=== PATIENT | female | born 1975 | race Caucasian/White ===

== ENCOUNTER 2016-11-11 22:23 | Emergency (ER) | payer OTHER ==
[~2016-11-11] VITALS: Ht 162.6 cm; Wt 104.3 kg
[~2016-11-11 22:23] MED LIST: CARB100C79 PO
[2016-11-11 22:37] VITALS: BP 159/93
--- NOTE | 2016-11-11 23:21 | NUR ---
TO ER OF2
[2016-11-11 23:25] LABS: APPEARANCE,URINE SL CLOUDY (CLEAR); BILIRUBIN,URINE NEGATIVE (NEGATIVE); BLOOD, URINE NEGATIVE (NEGATIVE); COLOR,URINE YELLOW (YELLOW); LEUKOCYTE ESTERASE ,URINE 1+ (NEGATIVE); NITRITE, URINE NEGATIVE (NEGATIVE); PROTEIN,URINE NEGATIVE (NEGATIVE); UGLUCOSE NEGATIVE (NEGATIVE); UROBILINOGEN,URINE 0.2 EU/dL (0.2 - 1)
[2016-11-11 23:37] LABS: BACTERIA,URINE 3+ /HPF (None Seen); MUCUS,URINE 3+ /LPF (None Seen); RBC,URINE 0-5 (RARE) /HPF (0-5)
--- NOTE | 2016-11-11 23:37 | NUR ---
41Y/F PT. PRESENTS TO ED WITH C/O LOWER BACK PAIN WITH FREQUENCY URINATE X 2 DAYS. DENIES N/V/D. HX. SEIZURE. AAO X4, AMBULATORY WITH STEADY GAIT. RESPIRATIONS ROOM AIR, EVEN AND UNLABORED. C/O BACK PAIN 11/15. VSS, ER MD MADE AWARE OF PT. STATUS.
--- NOTE | 2016-11-11 23:53 | NUR ---
Patient being evaluated by physician.
--- NOTE | 2016-11-12 00:16 | NUR ---
Patient discharged with v/s stable. Written and verbal after care instructions given and explained. Patient alert, oriented and verbalized understanding of instructions. Ambulatory with steady gait. All questions addressed prior to discharge. ID band removed. Patient advised to follow up with PMD. Rx of NORCO 5/325 MG, CARBAMAZEPINE 200 MG, MOTRIN 800 MG, FLEXARIL 5 MG given. Patient educated on indication of medication including possible reaction and side effects. Opportunity to ask questions provided and answered.
[2016-11-12 00:17] VITALS: BP 152/90
== END 2016-11-12 00:16 | disposition home or self-care (01) ==
LOC: MED 22:23
DX: M54.40 Lumbago with sciatica, unspecified side (principal); G40.909 Epilepsy, unspecified, not intractable, without status epilepticus; J45.909 Unspecified asthma, uncomplicated; Z88.1 Allergy status to other antibiotic agents; Z88.5 Allergy status to narcotic agent; Z79.899 Other long term (current) drug therapy
CPT/HCPCS: 81001; 81025; 87086; 99284

== ENCOUNTER 2017-01-08 18:01 | Emergency (ER) | payer OTHER ==
[~2017-01-08] VITALS: Ht 160 cm; Wt 106.6 kg
[~2017-01-08 18:01] MED LIST changes: -CARB100C79 PO; +TEGRETOL100 M1 PO
[2017-01-08 18:23] VITALS: BP 157/94
[2017-01-08] MEDS: IBUPROFEN 800 MG TAB PO ONE (19:31)
[2017-01-08 21:07] VITALS: BP 145/92
== END 2017-01-08 21:07 | disposition home or self-care (01) ==
LOC: MED 18:01
DX: S83.8X2A Sprain of other specified parts of left knee, initial encounter (principal); S93.491A Sprain of other ligament of right ankle, initial encounter; J45.909 Unspecified asthma, uncomplicated; Z88.1 Allergy status to other antibiotic agents; Z88.5 Allergy status to narcotic agent; Z79.899 Other long term (current) drug therapy; X58.XXXA Exposure to other specified factors, initial encounter; Y93.89 Activity, other specified; Y92.89 Other specified places as the place of occurrence of the external cause; Y99.8 Other external cause status
CPT/HCPCS: 73562; 73610; 99284; Q0092

== ENCOUNTER 2017-08-12 16:46 | Emergency (ER) | payer OTHER ==
[~2017-08-12] VITALS: Ht 160 cm; Wt 106.6 kg
[~2017-08-12 16:46] MED LIST changes: +CARB100C79 PO; -TEGRETOL100 M1 PO
[2017-08-12 17:01] VITALS: BP 166/102
--- NOTE | 2017-08-12 17:01 | NUR ---
PT AMBULATED TO BED 12
--- NOTE | 2017-08-12 17:10 | NUR ---
42Y/F BIB SELF C/O BACK PAIN X 2 DAYS. MOTRIN LAST TAKEN LAST NIGHT. DENIES ANY TRAUMA OR FALL. AAOX4 WITH EVEN AND STEADY GAIT; PATIENT STATES PAIN OF 8/10 AT THIS TIME; PATIENT POSITIONED FOR COMFORT; HOB ELEVATED; BEDRAILS UP X 1; BED DOWN. ER MD MADE AWARE OF PT STATUS.
--- NOTE | 2017-08-12 17:18 | NUR ---
Patient being evaluated by physician at bedside.
[2017-08-12] MEDS ORDERED: DIAZEPAM 5 MG TAB PO ONE (17:20)
[2017-08-12] MEDS ORDERED: KETOROLAC 30 MG/ML VIAL IM ONE (17:20)
--- NOTE | 2017-08-12 19:26 | NUR ---
Patient discharged with v/s stable. Written and verbal after care instructions given and explained. Patient alert, oriented and verbalized understanding of instructions. Ambulatory with steady gait. All questions addressed prior to discharge. ID band removed. Patient advised to follow up with PMD. Rx of TEGRETOL, NAPROSYN, VALIUM given. Patient educated on indication of medication including possible reaction and side effects. Opportunity to ask questions provided and answered.
[2017-08-12 19:28] VITALS: BP 165/100
== END 2017-08-12 19:26 | disposition home or self-care (01) ==
LOC: MED 16:46
DX: M54.9 Dorsalgia, unspecified (principal); J45.909 Unspecified asthma, uncomplicated; F41.9 Anxiety disorder, unspecified; M54.30 Sciatica, unspecified side; Z88.1 Allergy status to other antibiotic agents; Z88.5 Allergy status to narcotic agent; Z79.899 Other long term (current) drug therapy
CPT/HCPCS: 71045; 96372; 99283; J1885; Q0092

== ENCOUNTER 2018-03-03 17:27 | Emergency (ER) | payer OTHER ==
[~2018-03-03] VITALS: Ht 170.2 cm; Wt 81.6 kg
--- NOTE | 2018-03-03 17:32 | NUR ---
PT AMBULATED TO ER CHAIR E
[2018-03-03 17:33] VITALS: BP 165/101
--- NOTE | 2018-03-03 17:46 | NUR ---
PT C/O COUGH X 2 DAYS. FEELING WEAK TODAY, CHILLS AND NEEDING MED REFILL OF TEGRETOL 200 MG ONCE A DAY. 0/10 PAIN. STATES SHE FEELS LIKE SHE'S GOING TO HAVE A EIZURE, NO NVD OR SOB/CP. HX---SEIZURES. SKIN IS PINK/WARM/DRY; AAOX4 WITH EVEN AND STEADY GAIT; LUNGS CLEAR BL. PATIENT STATES PAIN OF 0/10 AT THIS TIME. PATIENT POSITIONED FOR COMFORT; HOB ELEVATED; BEDRAILS UP X2; BED DOWN. ER MD MADE AWARE OF PT STATUS.
--- NOTE | 2018-03-03 18:07 | NUR ---
Patient being evaluated by at bedside.
[2018-03-03] MEDS ORDERED: carBAMazepine 200 MG TAB PO ONE (18:10)
[2018-03-03] MEDS ORDERED: KETOROLAC 60 MG/2 ML VIAL IM ONE (18:10)
[2018-03-03 18:34] VITALS: BP 156/94
--- NOTE | 2018-03-03 18:35 | NUR ---
Patient discharged with v/s stable. Written and verbal after care instructions given and explained. Patient alert, oriented and verbalized understanding of instructions. Ambulatory with steady gait. All questions addressed prior to discharge. ID band removed. Patient advised to follow up with PMD. Rx of TEGRETOL/MOTRIN given. Patient educated on indication of medication including possible reaction and side effects. Opportunity to ask questions provided and answered.
== END 2018-03-03 18:35 | disposition home or self-care (01) ==
LOC: MED 17:27
DX: M54.5 Low back pain (principal); R56.9 Unspecified convulsions; J45.909 Unspecified asthma, uncomplicated; Z76.0 Encounter for issue of repeat prescription; Z88.1 Allergy status to other antibiotic agents; Z88.5 Allergy status to narcotic agent; Z79.899 Other long term (current) drug therapy
CPT/HCPCS: 81002; 81025; 96372; 99283; J1885

== ENCOUNTER 2020-12-11 21:49 | Emergency (ER) | payer OTHER ==
[~2020-12-11] VITALS: Ht 160 cm; Wt 111.1 kg
[2020-12-11 22:05] VITALS: BP 163/86
--- NOTE | 2020-12-11 22:08 | NUR ---
TO LOBBY A/W BED AMBULATORY
--- NOTE | 2020-12-11 22:20 | NUR ---
TO ER BED 6
[2020-12-11] MEDS ORDERED: ASPIRIN 325 MG TAB PO ONE (22:45)
[2020-12-11] MEDS ORDERED: NITROGLYCERIN 0.4 MG TAB SL ONE (22:45)
--- NOTE | 2020-12-11 22:50 | NUR ---
45 YO/F BIB SELF W C/O OF TIGHT INTERMITTENT CHEST PAIN X2 DAYS, NON RADIATING. PATIENT DENIES CHEST PAIN AT THIS TIME. PATIENT REPORTS LAST EPISODE OF CHEST PAIN LASTING APPROX 5 MINUTES AT 4/10. PATIENT REPORTS ACCOMPANING DIZZINESS WHEN W CHEST PAIN EPISODES, NO DIZZINESS AT THIS TIME. PATIENT DENIES SOB, N/V/D. PATIENT S1S2 PRESENT, CAP REFIL <3SEC, +2 RADIAL PULSES, BREATHING EVEN AND UNLABORED, LUNG SOUNDS CLEAR THROUGHOUT. PATIENT TOOK X3 TABS OF ASPIRIN 81MG AT 2100, REPORTS MEDICATION HELPED W PAIN. PATIENT LAYING IN BED LOCKED IN LOWEST POSITION W X2 SIDERAILS UP FOR PATIENT SAETY, HOB ELEVATED. PATIENT CONNECTED TO MONITOR W VSS. BP AT 169/100 ERMD AWARE. PMH:SEIZURES, HTN, ASTHMA, ANXIETY ALLERGIES: CODEINE, CEPHALEXIN, SULFA, VANCOMYCIN
[2020-12-11 23:12] LABS: BASOPHILS % (AUTO) 0.5 % (0.0-2.0); EOSINOPHILS # (AUTO) 0.1 K/uL (0-0.4); EOSINOPHILS % (AUTO) 0.7 % (0.0-4.0); HEMATOCRIT 31.4 % (36-48); HEMOGLOBIN 10.2 g/dL (12.0-16.0); LYMPHOCYTES # (AUTO) 2.5 K/uL (2.5-16.5); LYMPHOCYTES % (AUTO) 26.2 % (20.5-51.1); MEAN CORPUSCULAR HEMOGLOBIN 25 pg (27-31); MEAN CORPUSCULAR HGB CONC 33 g/dL (33-37); MEAN CORPUSCULAR VOLUME 76.6 fL (80-94); MONOCYTES # (AUTO) 0.4 K/uL (0.8-1.0); MONOCYTES % (AUTO) 4.5 % (1.7-9.3); NEUTROPHILS # (AUTO) 6.6 K/uL (1.8-7.7); NEUTROPHILS % (AUTO) 68.1 % (42.2-75.2); PLATELET COUNT (AUTO) 327 K/uL (140-450); RED BLOOD CELL COUNT(AUTO) 4.09 MIL/uL (4.20-5.40); RED CELL DISTRIBUTION WIDTH 14.1 % (11.6-13.7); WHITE BLOOD COUNT (AUTO) 9.7 K/uL (4.8-10.8)
--- NOTE | 2020-12-11 23:18 | NUR ---
ASPRIRIN AND NITROSTAT NOT ADMINISTERED, PER PATIENT DENIES CHEST PAIN AT THIS TIME AND REPORTS TAKING ASPIRIN HER SELF AT 2100 TOTAL OF 243MG. PER ERMD NOT TO ADMINISTER ASPIRIN OR NITROSTAT AT THIS TIME.
[2020-12-11 23:30] LABS: ALBUMIN 3.2 g/dL (3.4-5.0); ANION GAP 9.3 (8-16); CARBON DIOXIDE 29.3 mmol/L (21-32); POTASSIUM 3.6 mmol/L (3.5-5.1); TOTAL BILIRUBIN 0.1 mg/dL (0.0-1.0)
[2020-12-12] MEDS ORDERED: CARB200T7 PO (00:07)
[2020-12-12 00:15] VITALS: BP 163/85
--- NOTE | 2020-12-12 00:15 | NUR ---
Patient discharged with v/s stable. Written and verbal after care instructions given and explained. Patient alert, oriented and verbalized understanding of instructions. Ambulatory with steady gait. All questions addressed prior to discharge. ID band removed. Patient advised to follow up with PMD. Rx of CARBAMAZEPINE given. Patient educated on indication of medication including possible reaction and side effects. Opportunity to ask questions provided and answered.
== END 2020-12-12 00:15 | disposition home or self-care (01) ==
LOC: MED 21:49
DX: R07.89 Other chest pain (principal); E11.9 Type 2 diabetes mellitus without complications; Z88.1 Allergy status to other antibiotic agents; Z88.5 Allergy status to narcotic agent
CPT/HCPCS: 36415; 71045; 80053; 84484; 85025; 93005; 99285; Q0092